=== PATIENT | male | born 1965 | race Caucasian/White ===

== ENCOUNTER 2017-03-22 17:46 | Emergency (ER) | payer OTHER ==
[~2017-03-22] VITALS: Ht 175.3 cm; Wt 95.5 kg
[~2017-03-22 17:46] MED LIST: ANALGESIC; ATIVAN 1MG T1 MG/TAB PO; CAMPRAL333 MG PO; EFFEXOR 3737.5 MG/TA PO; GLUCOPHAGE500 MG/TAB PO; MULTIPLE VITAMI1 TA5 PO; NO HOME MEDICATIONS; NORCO 325 MG-51 TAB PO; NORCO 325 MG-7.1 TAB PO; PENICILLIN250 MG PO; PERCOCET 500 MG1 TAB PO; SEROQUEL100 MG PO; ULTRAM 50MG TAB50 MG PO
[2017-03-22 17:48] VITALS: BP 153/74; TEMP 99.7
[2017-03-22] MEDS ORDERED: XANAX 0.5MG0.5 MG PO (17:50)
[2017-03-22] MEDS ORDERED: AMOXICILLIN 50500 MG PO (18:15)
[2017-03-22 18:23] VITALS: PULSE 91
== END 2017-03-22 18:24 | disposition home or self-care (01) ==
LOC: COL.ER 17:46
DX: K08.89 Other specified disorders of teeth and supporting structures (principal); E11.9 Type 2 diabetes mellitus without complications; F32.9 Major depressive disorder, single episode, unspecified; F41.9 Anxiety disorder, unspecified; F17.210 Nicotine dependence, cigarettes, uncomplicated; Z79.84 Long term (current) use of oral hypoglycemic drugs

== ENCOUNTER 2019-04-11 09:07 | Day surgery (SDC) | payer OTHER ==
[~2019-04-11] VITALS: Ht 175.3 cm; Wt 96.8 kg
[~2019-04-11 09:07] MED LIST changes: +AMOXICILLIN 50500 MG PO; +XANAX 0.5MG0.5 MG PO
[2019-04-11 09:27] VITALS: BP 130/87; PULSE 73; TEMP 97.9
[2019-04-11 10:01] LABS: ALBUMIN 4.3 gm/dL (3.5-5.0); CALCIUM 8.9 mg/dL (8.4-10.2); CREATININE, serum 0.75 (0.66-1.25); POTASSIUM 4.2 mmol/L (3.4-5.0)
[2019-04-11] MEDS ORDERED: XANAX .25M0.25 MG/TA PO (10:07)
[2019-04-11] MEDS ORDERED: GLUCOPHAGE500 MG/TAB PO ×2 (10:09)
[2019-04-11 11:50] VITALS: BP 150/96; PULSE 72
--- NOTE | 2019-04-11 11:50 | NUR ---
Patient returns to room 1 per cart from surgery and arouses to verbal stimuli. Right port a catheter site free of redness. Dressing clean and dry around Peg tube site. IV fluids infusing left hand and site is free of redness. Temp 97.4 and room air sats 99%. Siderails up x2 and call light in reach. Spouse in room.
[2019-04-11] MEDS ORDERED: NORCO 325 MG-51 TAB PO (12:02)
[2019-04-11] MEDS ORDERED: MOTRIN 600600 MG/TAB PO (12:02)
--- NOTE | 2019-04-11 12:03 | NUR ---
barnworker groom met with patient and his to discuss obtaining peg tube feeding and discuss home health. Patient lives with his spouse in [place], [place] and will return home today. Patient is employed and denied need for home health for peg tube teaching. Spouse confirmed that home health was not necessary. Worker provided options for feedings and patient/spouse chose [facility] and signed choice form. Worker gave a referral to [facility] and faxed orders/clinical information. Worker collaborated with nursing and Hayley helms regarding above information.
[2019-04-11 12:10] VITALS: BP 151/101; PULSE 74
--- NOTE | 2019-04-11 12:10 | NUR ---
Noted slight bleeding from the lower lip. Area wiped with cool cloth. Small abrasion noted from Egd peg placement on the lower left lip area. Assisted up to the bathroom to void. Dressing on the Peg tube site clean and dry.
[2019-04-11 12:25] VITALS: BP 152/92; PULSE 71
--- NOTE | 2019-04-11 12:25 | NUR ---
Resting and spouse in the room. IV to INT.
[2019-04-11 12:40] VITALS: BP 151/91; PULSE 73
--- NOTE | 2019-04-11 12:40 | NUR ---
IV discontinued and site is free of redness. Shown spouse and patient proper feeding techniuqe via Peg tube. Provided 60cc syringes x2, medication cups and measuring glasses for feedings. Abdominal binder placed on. Dressing remains clean and dry around the peg tube insertion site. All questions answered.
--- NOTE | 2019-04-11 13:05 | NUR ---
Instructions signed. Was medicated with [place] 5mg one tab for Peg tube insertion soreness. Provided scripts for [place] and Motrin.
--- NOTE | 2019-04-11 13:08 | NUR ---
Patient dismissed to home driven by spouse and taken to the front door per wheelchair and assisted into car by this RN with instructions and supplies in hand.
== END 2019-04-11 13:08 | disposition home or self-care (01) ==
LOC: SDCO 09:07
PROVIDERS: Surgery
DX: C32.9 Malignant neoplasm of larynx, unspecified (principal); F41.9 Anxiety disorder, unspecified; E11.9 Type 2 diabetes mellitus without complications; F17.210 Nicotine dependence, cigarettes, uncomplicated; Z80.1 Family history of malignant neoplasm of trachea, bronchus and lung; Z83.3 Family history of diabetes mellitus; Z82.49 Family history of ischemic heart disease and other diseases of the circulatory system; Z80.41 Family history of malignant neoplasm of ovary; Z79.84 Long term (current) use of oral hypoglycemic drugs
CPT/HCPCS: C1788; J1644; J2250; J2704; J3010; J7030

== ENCOUNTER → 2019-04-18 | Outpatient (CLI) | payer OTHER ==
[~2019-04-18] VITALS: Ht 175.3 cm; Wt 94.4 kg
[~2019-04-18] MED LIST changes: +MOTRIN 600600 MG/TAB PO; +XANAX .25M0.25 MG/TA PO
[2019-04-18 12:45] VITALS: BP 168/90; PULSE 95
[2019-04-18 13:34] VITALS: BP 147/92; PULSE 93
--- NOTE | 2019-04-18 13:51 | NUR ---
PT AMBULATORY WITH AND STAFF TO FRONT LOBBY
== END ==
LOC: COL.RAD 11:58
DX: C32.0 Malignant neoplasm of glottis (principal)

== ENCOUNTER → 2019-04-20 | Outpatient (CLI) | payer OTHER | LOC: ZCOL.LAB 16:15 | DX: T81.49XA Infection following a procedure, other surgical site, initial encounter (principal) ==

== ENCOUNTER 2019-05-30 13:57 | Outpatient (RCR) | payer OTHER ==
[2019-08-04] MEDS ORDERED: MULTI VITAMINS1 TAB PO (16:42)
[2019-08-04] MEDS ORDERED: NORCO 325 MG-51 TAB PO (18:11)
== END 2019-08-28 | disposition home or self-care (01) ==
LOC: WSST
DX: C44.92 Squamous cell carcinoma of skin, unspecified (principal); C32.0 Malignant neoplasm of glottis

== ENCOUNTER 2019-08-04 15:54 | Day surgery (SDC) | payer OTHER ==
[~2019-08-04] VITALS: Ht 175.3 cm; Wt 87.1 kg
[~2019-08-04 15:54] MED LIST changes: -MULTI VITAMINS1 TAB PO
[2019-08-04 16:22] VITALS: BP 133/85; PULSE 77; TEMP 96.7
[2019-08-04] MEDS ORDERED: MULTI VITAMINS1 TAB PO (16:42)
--- NOTE | 2019-08-04 16:45 | NUR ---
Patient to room 341 from adimissions. Patient walked independently to the room. A&Ox4. Denies pain and discomfort. Nurse oriented patient to room, bed and call light. Assessment complete and charted. Port accessed 1 inch hubner needle. Patient tolerated well. No further needs expressed from patient. Call light within reach
--- NOTE | 2019-08-04 16:55 | NUR ---
Patient taken by bed for procedure.
[2019-08-04 18:00] VITALS: BP 140/85; PULSE 75
--- NOTE | 2019-08-04 18:00 | NUR ---
Patient back to room from procedure. A&Ox4. Denies pain and discomfort. IV CDI. Post op VS monitored. Left lower quadrant site/peg tube CDI gauze and paper tape covering. Will continue to monitor patient. Patient wants to rest. No further needs expressed from patient. Call light within reach. Bed alarm on
[2019-08-04 18:07] VITALS: BP 123/76; PULSE 71
[2019-08-04] MEDS ORDERED: NORCO 325 MG-51 TAB PO (18:11)
[2019-08-04 18:22] VITALS: BP 118/75; PULSE 66
--- NOTE | 2019-08-04 19:22 | NUR ---
Port deaccessed with 5ml heparin and bandaid applied, tip intact. . Patient tolerated well. Discharge paperwork reviewed with patient. Patient verbalized an understanding to follow doctors orders. Patient transfered by nursing staff to vehicle by wheelchair. Personal belongings and discharge paperwork with patient. No further needs expressed from patient
== END 2019-08-04 19:25 | disposition home or self-care (01) ==
LOC: COL.RAD 15:54 → SURG 15:55 → COL.RAD 19:25
DX: T85.848A Pain due to other internal prosthetic devices, implants and grafts, initial encounter (principal); K94.29 Other complications of gastrostomy; C32.9 Malignant neoplasm of larynx, unspecified; E11.9 Type 2 diabetes mellitus without complications; F41.9 Anxiety disorder, unspecified; Z79.84 Long term (current) use of oral hypoglycemic drugs; Z86.19 Personal history of other infectious and parasitic diseases; Z80.1 Family history of malignant neoplasm of trachea, bronchus and lung; Z79.899 Other long term (current) drug therapy; Z87.891 Personal history of nicotine dependence
CPT/HCPCS: OP; J0690; J2250; J2704

== ENCOUNTER → 2019-08-04 | Outpatient (CLI) | payer OTHER ==
[~2019-08-04] MED LIST changes: +MULTI VITAMINS1 TAB PO
== END ==
LOC: COL.RAD 11:00
DX: K94.29 Other complications of gastrostomy (principal)

== ENCOUNTER 2019-11-23 10:35 | Day surgery (SDC) | payer OTHER ==
[~2019-11-23] VITALS: Ht 175.3 cm; Wt 82.4 kg
[~2019-11-23 10:35] MED LIST changes: +MULTI VITAMINS1 TAB PO
[2019-11-23] MEDS ORDERED: PERCOCET 325 MG1 TAB PO (11:19)
[2019-11-23] MEDS ORDERED: NORCO 325 MG-101 TAB PO (11:20)
[2019-11-23] MEDS ORDERED: DUO-KAPS1 CAP PO (11:22)
[2019-11-23] MEDS ORDERED: TRADJENTA5 MG PO (11:23)
[2019-11-23 11:26] VITALS: BP 140/84; PULSE 76; TEMP 97.8
[2019-11-23 14:52] VITALS: TEMP 98.1
[2019-11-23] MEDS ORDERED: MOTRIN 600600 MG/TAB PO (14:55)
[2019-11-23 15:10] VITALS: BP 119/78; PULSE 82
[2019-11-23 15:25] VITALS: BP 127/83; PULSE 83
[2019-11-23 15:40] VITALS: BP 116/70; PULSE 82
== END 2019-11-23 16:10 | disposition home or self-care (01) ==
LOC: SDCO 10:35
DX: K43.2 Incisional hernia without obstruction or gangrene (principal); E11.9 Type 2 diabetes mellitus without complications; F41.9 Anxiety disorder, unspecified; Z20.828 Contact with and (suspected) exposure to other viral communicable diseases; Z79.84 Long term (current) use of oral hypoglycemic drugs; Z79.899 Other long term (current) drug therapy; Z80.1 Family history of malignant neoplasm of trachea, bronchus and lung; Z80.41 Family history of malignant neoplasm of ovary; Z82.49 Family history of ischemic heart disease and other diseases of the circulatory system; Z85.21 Personal history of malignant neoplasm of larynx; Z87.891 Personal history of nicotine dependence; Z92.21 Personal history of antineoplastic chemotherapy; Z92.3 Personal history of irradiation
CPT/HCPCS: C1781; J0690; J1100; J2250; J2405; J2704; J3010; J7030

== ENCOUNTER 2020-07-26 19:14 | Emergency (ER) | payer OTHER ==
[~2020-07-26] VITALS: Ht 175.3 cm; Wt 88.6 kg
[~2020-07-26 19:14] MED LIST changes: +DUO-KAPS1 CAP PO; +NORCO 325 MG-101 TAB PO; +PERCOCET 325 MG1 TAB PO; +TRADJENTA5 MG PO
[2020-07-26] MEDS ORDERED: CLEOCIN HCL300 MG PO (19:43)
[2020-07-26] MEDS ORDERED: FLAGYL500 MG PO (19:43)
[2020-07-26 19:48] VITALS: BP 139/89; PULSE 78; TEMP 98.2
== END 2020-07-26 19:48 | disposition home or self-care (01) ==
LOC: COL.ER 19:14
DX: K12.2 Cellulitis and abscess of mouth (principal); I50.9 Heart failure, unspecified; E11.9 Type 2 diabetes mellitus without complications; F32.9 Major depressive disorder, single episode, unspecified; F41.9 Anxiety disorder, unspecified; Z87.891 Personal history of nicotine dependence; Z85.118 Personal history of other malignant neoplasm of bronchus and lung; Z88.5 Allergy status to narcotic agent; Z88.6 Allergy status to analgesic agent; Z88.8 Allergy status to other drugs, medicaments and biological substances; Z79.84 Long term (current) use of oral hypoglycemic drugs; Z79.899 Other long term (current) drug therapy

== ENCOUNTER 2021-12-21 11:37 | Emergency (ER) | payer MEDICARE ==
[~2021-12-21] VITALS: Ht 175.3 cm; Wt 95.5 kg
[~2021-12-21 11:37] MED LIST changes: +CLEOCIN HCL300 MG PO; +FLAGYL500 MG PO
[2021-12-21 11:50] VITALS: TEMP 98.4
[2021-12-21 12:25] LABS: BASO % 0.6 % (0.0-2.0); EOS # 0.2 K/mm3 (0.0-0.7); EOS % 3.3 % (0.0-4.0); GRAN # 4.5 K/mm3 (1.4-6.5); GRAN % 69.7 % (42.2-75.2); HEMATOCRIT 41.7 % (42.0-52.0); HEMOGLOBIN 13.9 g/dl (13.5-18.0); LYMPH # 1.1 K/mm3 (1.2-3.4); LYMPH % 17.2 % (20.0-51.0); MEAN CELL VOLUME 88 fl (80.0-100.0); MEAN CORPUSCULAR HEMOGLOBIN 29 pg (27-31); MEAN CORPUSCULAR HGB CONC 33 g/dl (33.0-37.0); MEAN PLATELET VOLUME 9.4 fl (7.4-10.4); MONO # 0.6 K/mm3 (0.1-0.6); MONO % 8.9 % (1.7-9.3); PLATELET COUNT 303 K/mm3 (130-400); RED BLOOD COUNT 4.73 M/mm3 (4.20-5.60)
[2021-12-21 12:36] LABS: ALBUMIN 4.4 gm/dL (3.5-5.0); BILIRUBIN,TOTAL 0.4 mg/dL (0.2-1.2); CALCIUM 9.3 mg/dL (8.4-10.2); CREATININE, serum 0.96 mg/dL (0.72-1.25); POTASSIUM 4.3 mmol/L (3.5-4.5); TOTAL PROTEIN 7.7 gm/dL (6.2-8.1)
[2021-12-21 12:50] LABS: MUCOUS Present (NOT PRESENT); SQUAMOUS EPITHELIAL None Seen /hpf (0-10); URINE BACTERIA None Seen /hpf (NONE SEEN); URINE RBC 0-2 /hpf (0-2); URINE WBC 0-2 /hpf (0-2)
[2021-12-21 12:51] LABS: COLLECTION METHOD CLEAN CATCH; URINE APPEARANCE Clear (CLEAR/HAZY); URINE COLOR Yellow (YELLOW)
[2021-12-21 12:52] LABS: URINE BLOOD Negative (NEGATIVE); URINE GLUCOSE Negative (NEGATIVE); URINE KETONE Negative (NEGATIVE); URINE NITRATE Negative (NEGATIVE); URINE PROTEIN(semi-quant) Negative (NEGATIVE); URINE UROBILINOGEN 0.2 E.U/dL (0.2-1.0)
[2021-12-21 12:56] LABS: THYROID STIMULATING HORMONE 3.375 uIU/mL (0.350-4.940); TROPONIN-I 0.015 ng/mL (0.00-0.033)
[2021-12-21 14:24] VITALS: BP 153/101; PULSE 94
== END 2021-12-21 14:27 | disposition home or self-care (01) ==
LOC: COL.ER 11:37
PROVIDERS: Emergency Medicine
DX: R53.83 Other fatigue (principal); R11.2 Nausea with vomiting, unspecified; R91.1 Solitary pulmonary nodule; Z86.16 Personal history of COVID-19; Z20.822 Contact with and (suspected) exposure to COVID-19
CPT/HCPCS: J7120

== ENCOUNTER 2022-12-14 11:04 | Day surgery (SDC) | payer MEDICARE, MEDICAID ==
[~2022-12-14] VITALS: Ht 175.3 cm; Wt 81.1 kg
[~2022-12-14 11:04] MED LIST changes: +OXYCONTIN 10MG10 MG PO; +ROXICODONE 55 MG/TAB PO; +SYNTHROID0.125 MG/T PO; +ZOFRAN ODT4 MG PO
[2022-12-14] MEDS ORDERED: NEURONTIN400 MG/CAP PO (12:24)
[2022-12-14] MEDS ORDERED: XANAX 0.5MG0.5 MG PO (12:26)
--- NOTE | 2022-12-14 13:45 | NUR ---
1155 PT AMBULATORY TO BAY 7 WITH STEADY GAIT, BREATHING EVEN AND UNLABORED. PT IS ALERT AND ORIENTED, ACCOMPANIED BY HIS . CONSENTS REVIEWED AND SIGNED BY PT. IV ESTABLISHED. LR INFUSING VIA GRAVITY AT ABOUT 100 ML. CALL LIGHT IN REACH. WARM BLANKET PROVIDED.
[2022-12-14 17:05] VITALS: BP 90/57; BP 95/59; PULSE 81; PULSE 84; TEMP 98.7
--- NOTE | 2022-12-14 17:05 | NUR ---
PATIENT RETURNED TO ROOM 7 VIA CART, ALERT AND ORIENTED X3. RATES PAIN TOLERABLE PRESSURE 5/10 TO GROIN. DENIES NAUSEA AND SHORTNESS OF BREATH. BREATHING REGULAR AND UNLABORED ON ROOM AIR. SKIN WARM AND DRY. BILATERAL RADIAL PULSES 2+ REGULAR. 3 ABDOMINAL INCISIONS WITH BANDAIDS PRESENT. BANDAIDS CLEAN, DRY AND INTACT. ABDOMEN SOFT AND FLAT. SCROTAL SUPPORT IN PLACE. WARM BLANKET PLACED OVER ABDOMEN PER PATIENT REQUEST. NURSE HANDOFF COMPLETED IN ROOM. SEE CHART FOR VITAL SIGNS. PER REPORT PATIENT'S RECORDED BLOOD SUGAR WAS 192. PATIENT HAD APPLESAUCE AND SPRITE. BOTH FOOD AND DRINK TOLERATED WELL. SIGNIFICANT OTHER, ROSS, PRESENT IN ROOM. CALL LIGHT IN REACH.
[2022-12-14 17:15] VITALS: BP 95/59; PULSE 81
[2022-12-14 17:30] VITALS: BP 103/68; PULSE 99
[2022-12-14 17:45] VITALS: BP 100/64; PULSE 83
[2022-12-14 17:54] VITALS: BP 97/54; PULSE 87
[2022-12-14 18:00] VITALS: BP 120/66; PULSE 87
--- NOTE | 2022-12-14 18:15 | NUR ---
1800: DISCHARGE TEACHING COMPLETED WITH PRINTED EDUCATION AND INSTRUCTIONS SENT HOME WITH PATIENT. PATIENT INSTRUCTED TO CALL OFFICE TO SCHEDULE FOLLOW UP APPOINTMENT. PATIENT AND SIGNIFICANT OTHER VERBALIZED UNDERSTANDING OF TEACHING. PATIENT AMBULATED TO RESTROOM WITH STEADY GAIT AND VOIDED WITHOUT DIFFICULTY. REPORTED PAIN 3/10 TOLERABLE GROIN PRESSURE. ABDOMINAL BANDAIDS CLEAN, DRY AND INTACT. PATIENT CHANGED INTO PERSONAL CLOTHING AND DISCHARGED HOME WITH ROSS TRANSPORT.
== END 2022-12-14 18:15 | disposition home or self-care (01) ==
LOC: SDCO 11:04
DX: K40.90 Unilateral inguinal hernia, without obstruction or gangrene, not specified as recurrent (principal); K40.31 Unilateral inguinal hernia, with obstruction, without gangrene, recurrent; R51.9 Headache, unspecified; M54.2 Cervicalgia; E11.9 Type 2 diabetes mellitus without complications; Z79.84 Long term (current) use of oral hypoglycemic drugs; Z79.891 Long term (current) use of opiate analgesic; Z85.21 Personal history of malignant neoplasm of larynx; Z87.891 Personal history of nicotine dependence
CPT/HCPCS: C1781; J0360; J0690; J1100; J1170; J1885; J1920; J2405; J2550; J2704; J2710; J3010; J7120

== ENCOUNTER 2023-11-17 21:45 | Emergency (ER) | payer MEDICARE ==
[~2023-11-17] VITALS: Ht 175.3 cm; Wt 84.1 kg
[~2023-11-17 21:45] MED LIST changes: +NEURONTIN400 MG/CAP PO
[2023-11-17 21:51] VITALS: BP 153/83; TEMP 98.3
[2023-11-17 23:23] VITALS: PULSE 87
== END 2023-11-17 23:24 | disposition home or self-care (01) ==
LOC: COL.ER 21:45
DX: F41.9 Anxiety disorder, unspecified (principal); Z79.899 Other long term (current) drug therapy